=== PATIENT | male | born 1965 | race Asian ===

== ENCOUNTER 2019-10-11 11:20 | Emergency (ER) | payer OTHER ==
[~2019-10-11] VITALS: Ht 172.7 cm; Wt 90.0 kg
[2019-10-11] MEDS ORDERED: VOLTAREN1%GEL TOP (14:02)
[2019-10-11 14:49] VITALS: BP 135/77
== END 2019-10-11 14:45 | disposition home or self-care (01) | DRG 204 ==
LOC: ED 11:20
DX: R07.81 Pleurodynia (principal); I10 Essential (primary) hypertension